=== PATIENT | male | born 1935 | race Two or more races ===

== ENCOUNTER → 2017-01-07 | Outpatient (REF) | payer MEDICARE, OTHER ==
[2017-01-07 13:59] LABS: FOLATE > 24.0 NG/ML; VITAMIN B12 LEVEL 714 PG/ML
[2017-01-09 00:06] LABS: Lyme Disease IgG/IgM Antibodie <0.91 ISR (0.00-0.90); Lyme Disease IgM Ab Quantitati <0.80 index (0.00-0.79)
== END ==
LOC: M LABNEURO 13:19
PROVIDERS: ATTEND Psychiatry & Neurology Neurology
DX: G50.0 Trigeminal neuralgia (principal)